=== PATIENT | female | born 1985 | race Caucasian/White ===

== ENCOUNTER 2020-04-10 16:31 | Inpatient (IN) | payer OTHER ==
--- NOTE | ~2020-04-10 | OR ---
[facility] [address], [place] [address] Draft DATE OF OPERATION: 04/10/2020 SURGEON: Juan Manuel Millan DO PIPE SMOKING MACHINE OFFBEARER: Dr. Kirk. PROCEDURE: Primary low-transverse caesarean section. PREOPERATIVE DIAGNOSES: 1. Non-reassuring heart tones, remote from delivery. 2. Presumed abruption. 3. 32 weeks gestation. 4. Cephalic presentation. POSTOPERATIVE DIAGNOSES: Placental abruption greater than 50%, status post primary , pre-term viable female . LINES: None. DRAINS: Farah catheter. ESTIMATED BLOOD LOSS: 1000 mL. FINDINGS: Pre-term viable female , nuchal x1, delivered in LOP position. Normal-appearing uterus, bilateral tubes, and bilateral ovaries. Placenta with greater than 50% abruption including very dark red blood clot between chorion and amnion. INDICATIONS: The patient presented to [facility] following sudden leakage of fluid at work. She reported significant amount of bleeding, presented to the doctor at [employer] where she works, who sent her by ambulance FB for further evaluation. Upon arrival, she was noted to have late decelerations down to 83, was kiley on the monitor and had a significant amount of active bright red bleeding from her vagina perineum, inner thighs, PATIENT NAME: RUSS MATOS OPERATIVE REPORT DATE OF : 89 REPORT #: [id number] PHYSICIAN: JUAN MANUEL MILLAN DO PCP: NO PRIMARY CARE PHYSICIAN REPORT IS CONFIDENTIAL AND NOT TO BE RELEASED WITHOUT AUTHORIZATION [facility] [address], [place] [address] Draft saturated maxi pad. She was emergently consented for code 4 caesarean delivery. Under general anesthesia, was planned to transfer baby to higher level of care after delivery due to early gestational age. Verbal consent was obtained. DESCRIPTION OF PROCEDURE: The patient was taken to the operating room where Farah catheter was placed. IVCs were placed bilaterally. She was positioned in the supine position with leftward tilt. Abdomen was prepped and draped in the normal sterile fashion. incision was made with the scalpel and carried down to the underlying layer of fascia, which was extended laterally with Orr scissors. Inferior margin was grasped with Radha clamps, elevated, and underlying rectus muscle dissected off bluntly and sharply with Orr scissors. In a similar manner, the superior margin of fascia was grasped with Radha, elevated, and underlying rectus muscle dissected off bluntly and sharply with Orr scissors. Peritoneum was entered bluntly and extended with lateral traction. Incision was made in the lower uterine segment. Hysterotomy was extended laterally with superior and inferior gentle traction. Amniotic fluid was noted to be very bloody with large dark red blood clots exceeding 100 mL present in the food. Baby was easily delivered and immediately cord was doubly clamped and cut. Baby was handed to waiting Nursery team. A segment of cord was obtained for cord gases and the placenta was manually extracted and inspected, noted to have greater than 50% placental abruption. Uterus was cleared off clots and debris. Hysterotomy was closed with 0 Monocryl first in a running locked fashion and then in a second-layered in an imbricating fashion. Area of persistent oozing near the right apex was sutured in a lnynfj-vz-zfxzk fashion with 0 Monocryl with resulting hemostasis. Pelvis was suction irrigated and excellent hemostasis was noted at the hysterotomy. ACell sheet was applied over the hysterotomy. Peritoneum was closed with 2-0 Vicryl in a running fashion. Rectus muscles were reapproximated with 0 Vicryl in a simple interrupted fashion. Superficial oozing vessels were cauterized with Bovie cautery and ACell powder was applied over rectus muscles. Fascia was closed in a running fashion with 0 Vicryl. Subcutaneous tissue was reapproximated with 3-0 Vicryl in a simple interrupted fashion and subcuticular closure was performed with 4-0 Monocryl in a running fashion. Uterus was crede'd with minimum bleeding and fundus was noted to be firm. Abdominal x-rays were performed due to the emergent nature of the surgery, which prevented a full instrument and sponge count prior to surgery. No laps or instruments were noted on x-ray and all subsequent counts were complete. The patient remained in the OR initially after procedure for completion of a tap block per anesthesia with plans to recover in the LDRP room with telemetry. Juan Manuel Millan DO PATIENT NAME: RUSS MATOS OPERATIVE REPORT DATE OF : [birth year] REPORT #: [id number] PHYSICIAN: JUAN MANUEL MILLAN DO PCP: NO PRIMARY CARE PHYSICIAN REPORT IS CONFIDENTIAL AND NOT TO BE RELEASED WITHOUT AUTHORIZATION [address] [address] Draft [facility] /[id number] Copies: ~ PATIENT NAME: SHAWNARUSS OPERATIVE REPORT DATE OF : [birth year] REPORT #: [id number] PHYSICIAN: JUAN MANUEL MILLAN DO PCP: NO PRIMARY CARE PHYSICIAN REPORT IS CONFIDENTIAL AND NOT TO BE RELEASED WITHOUT AUTHORIZATION
--- NOTE | 2020-04-11 15:36 | PR ---
[facility] [address] [place], [place] [address] Signed PP Progress Notes Datetime Report Generated by RICK: 04/11/2020 15:36 SUBJECTIVE: [id number] Pain: Within Normal Limits Nausea/Vomiting: Denies Flatus: Yes Bowel Movement: No Vital Signs: [id number] Vital Signs: Reviewed Notable Details: CV: regular rate and rhythm, significant murmur consistent with aortic valve replacement Cardiovascular: Abnormal Respiratory: Normal Abdomen/Uterus: Normal Lochia: Normal Breasts: Normal Extremities: Normal Incision: Normal Progress: Normal Exam Comments: Incision c/d/i, margins intact IMPRESSION/PLAN/PROCEDURES: [id number] Impression: Normal Progression Plan: Continue Present Management; Discharge Progress Notes: POD#1 s/p PLTCS for placental abruption at 32 2/7 weeks gestation -progressing well -pumping with return of colostrum -baby transferred to [facility] NICU after delivery due to prematurity, patient strongly desires discharge NADEGE to be with baby -pain well-controlled with oral medications -s/p spontaneous void following singletary catheter removal -lochia light, incision healing well -reviewed strict ED/return precautions for infection, bleeding, preeclampsia -reviewed increased risk of depression. Discussed common signs/symptoms with pt and her sister, present at bedside. 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 Gómez, cleared for DC -asymptomatic, denies dyspnea/dizziness/lightheadedness *Electronically Signed* 04/11/20 1536 ZAWORSKI,JUAN MANUEL M DO PATIENT NAME: RUSS MATOS PROGRESS NOTE DATE OF : 89 PHYSICIAN: JUAN MANUEL MILLAN DO RPT #: [id number] REPORT IS CONFIDENTIAL AND NOT TO BE RELEASED WITHOUT AUTHORIZATION [facility] [address] [place], [place] [address] Signed -s/p Magnesium replacement this am, plan for Milk of Magnesia for bowel care -follow-up with door worker as scheduled, strict ED return precautions if difficulty breathing/chest pain or pressure/palpitations Plan: DC to home with precautions as noted above Signing Physician: Juan Manuel Millan DO Copies: ~ *Electronically Signed* 04/11/20 1536 JUAN MANUEL MILLAN DO PATIENT NAME: RUSS MATOS PROGRESS NOTE DATE OF : [birth year] PHYSICIAN: JUAN MANUEL MILLAN DO RPT #: [id number] REPORT IS CONFIDENTIAL AND NOT TO BE RELEASED WITHOUT AUTHORIZATION
== END 2020-04-11 17:00 | disposition home or self-care (01) | DRG 786 ==
LOC: FBCO 16:31 → FBC 16:44
PROVIDERS: ADMIT Obstetrics & Gynecology; ATTEND Obstetrics & Gynecology
PROC: 3E0T3BZ Introduction of Anesthetic Agent into Peripheral Nerves and Plexi, Percutaneous Approach (ICD-10-PCS; 2020-04-10)
PROC: 3E0T33Z Introduction of Anti-inflammatory into Peripheral Nerves and Plexi, Percutaneous Approach (ICD-10-PCS; 2020-04-10)
PROC: 10D00Z1 Extraction of Products of Conception, Low, Open Approach (ICD-10-PCS; principal; 2020-04-10 16:48)
DX: O45.93 Premature separation of placenta, unspecified, third trimester (principal); O60.13X0 Preterm labor second trimester with preterm delivery third trimester, not applicable or unspecified; Q87.2 Congenital malformation syndromes predominantly involving limbs; O99.355 Diseases of the nervous system complicating the puerperium; Z3A.32 32 weeks gestation of pregnancy; Z20.822 Contact with and (suspected) exposure to COVID-19; O76 Abnormality in fetal heart rate and rhythm complicating labor and delivery; Z37.0 Single live birth; O42.913 Preterm premature rupture of membranes, unspecified as to length of time between rupture and onset of labor, third trimester; O99.892 Other specified diseases and conditions complicating childbirth; G89.18 Other acute postprocedural pain; O69.1XX0 Labor and delivery complicated by cord around neck, with compression, not applicable or unspecified; O28.2 Abnormal cytological finding on antenatal screening of mother; O34.43 Maternal care for other abnormalities of cervix, third trimester; Z91.040 Latex allergy status; Z87.74 Personal history of (corrected) congenital malformations of heart and circulatory system; Z79.82 Long term (current) use of aspirin
CPT/HCPCS: 01961; 36415; 64448; 74018; 76942; 80053; 82803; 83735; 85027; C9803; J0131; J0330; J0690; J1100; J1170; J1200; J1650; J1885; J2405; J2590; J2704; J3010; J3475; J7121; U0003

== ENCOUNTER 2021-06-29 08:03 | Day surgery (SDC) | payer OTHER ==
[~2021-06-29] VITALS: Ht 170.2 cm; Wt 77.3 kg
--- NOTE | 2021-06-29 11:11 | NUR ---
06/29/21 1111 Sheets,Natalia 1057 PT ARRIVED TO PACU ON 10L VIA MASK AND ORAL AIRWAY IN PLACE. RESP EVEN AND UNLABORED. 1106 PT WAKES AND FOLLOWS COMMANDS TO OPEN MOUTH AND ORAL AIRWAY REMOVED. PT DENIES PAIN AND NAUSEA. PT REPORTS BEING COLD. WARM BLACKETS GIVEN. 1110 O2 REMOVED. PT REPORTS BEING WARM AND EASILY FALLS BACK TO SLEEP.
--- NOTE | 2021-06-29 11:59 | NUR ---
1150: PATIENT BACK IN DAY SURGERY ROOM FROM PACU. DROWSY. SLEEPING. AWAKENS EASILY TO VOICE. DENIES PAIN. VS CHECKED. NO PERIPAD IN PLACE. NO DRAINAGE FROM VAGINA SEEN. IV SITE WNL. SCDs ON. CALL LIGHT WITHIN REACH. FAMILY MEMBERS AT BEDSIDE. ICE WATER PLACED AT BEDSIDE.
[2021-06-29] MEDS ORDERED: IBUPROFEN800 MG PO (12:15)
--- NOTE | 2021-06-29 13:28 | NUR ---
1225: PATIENT ASSISTED OOB AND TO BATHROOM. GAIT STEADY. VOID WITHOUT DIFFICULTY. GAIT STEADY BACK TO ROOM. PATIENT GETTING DRESSED. 1235: IV DC'D WNL. TIP INTACT. DRESSING APPLIED. VS CHECKED. DISCHARGE INSTRUCTIONS GIVEN TO PATIENT. 1240: PATIENT DISCHARGED TO HOME VIA WHEELCHAIR WITH SISTER.
--- NOTE | 2021-07-06 09:52 | OR ---
[facility] [address] [place], [place] [address] Signed DATE OF OPERATION: 06/29/2021 SURGEON: Bobby Montero MD PREOPERATIVE DIAGNOSES: Abnormal uterine bleeding with small endometrial mass and CIN3. POSTOPERATIVE DIAGNOSES: Abnormal uterine bleeding and CIN3. PROCEDURE: Hysteroscopy with biopsy and loop electrical excision procedure (LEEP). ANESTHESIA: General. ESTIMATED BLOOD LOSS: 10 mL. COMPLICATIONS: None. DRAINS: None. FINDINGS: Cervix, normal size and shape. No obvious lesions. No acetowhite lesions seen. There was a small nonstaining Lugol's area at 10 o'clock on the cervix just at the squamocolumnar junction. Vagina had no lesions. Uterus showed normal endometrium. No masses or lesions. Both ostia appeared normal. The fundus showed slight bulging into the cavity, but no polyps or fibroids noted. DESCRIPTION OF PROCEDURE: The patient was brought to the operating room, placed in supine position. After adequate general anesthesia was obtained, was placed in a dorsal lithotomy position, prepped and draped in usual sterile fashion. A coated speculum was placed in the vagina. The cervix was identified and covered with acetic acid and no obvious acetowhite lesions were seen. The cervix was then carefully painted with Lugol's and there was a very small nonstaining area at approximately 10 o'clock. The cervix was then injected with a 5.5 mL of 1% lidocaine with epinephrine in a circumferential pattern in Electronically Signed By: BOBBY MONTERO MD 07/06/21 0952 PATIENT NAME: RUSS MATOS OPERATIVE REPORT DATE OF : 89 REPORT #: [id number] PHYSICIAN: BOBBY MONTERO MD PCP: NO PRIMARY CARE PHYSICIAN REPORT IS CONFIDENTIAL AND NOT TO BE RELEASED WITHOUT AUTHORIZATION [facility] [address] [place], [place] [address] Signed the stroma. 20 x 10 mm loop was used in the LEEP machine to cut the outer part of the cervix, making sure to incorporate the nonstaining area. A 10 x 10 mm loop was then used to remove a portion of the endocervix and Kevorkian curette was then used to scrape the remaining portion of the endocervix in a 360-degree fashion. These curettings and the cervix were all collected separately. A ball electrode was then used to cauterize the area of dissection and good hemostasis was noted. The cervix was slightly dilated with one dilator and then the hysteroscope set up. The hysteroscope was placed in the endocervical canal and the hysteroscope then entered the uterine cavity under direct visualization. Sterile saline was used as distending medium. The above findings were noted. The MyoSure Lite was placed through the hysteroscope and the endometrium sampled. The upper midline portion was taken down and good sampling of the anterior, posterior, and lateral edges were taken as well as the lower uterine segment using the MyoSure Lite. Good hemostasis was noted here. The hysteroscope was then removed. The cervix observed and noted to have good hemostasis. Monsel's was then placed in the cervical biopsy site, to further help with hemostasis. All instruments were removed from vagina. The patient tolerated the procedure well, went to recovery room in good condition. The sponge and instrument count correct in the procedure. The fluid deficit was noted to be 490 ml, but about half of this was noted to be lost in the drapes and onto the floor. The pressure wa set at 80 mm Hg. The endometrial biopsy, the cervix biopsy, the endocervix biopsy, and ECC were all separately sent to Pathology for identification. Bobby Montero MD [facility] /[id number] Copies: ~ Electronically Signed By: BOBBY MONTERO MD 07/06/21 0952 PATIENT NAME: RUSS MATOS OPERATIVE REPORT DATE OF : 89 REPORT #: [id number] PHYSICIAN: BOBBY MONTERO MD PCP: NO PRIMARY CARE PHYSICIAN REPORT IS CONFIDENTIAL AND NOT TO BE RELEASED WITHOUT AUTHORIZATION
--- NOTE | 2021-07-06 18:23 | PATH ---
[facility] [address] [place], [place] [address] Signed SPECIMEN(S): A CERVIX SPECIMEN(S): B ENDOCERVIX SPECIMEN(S): C ENDOCERVICAL CURETTINGS SPECIMEN(S): D ENDOMETRIAL BIOPSY SPECIMEN SOURCE: A. CERVIX B. ENDOCERVIX C. ENDOCERVICAL CURETTINGS D. ENDOMETRIAL BIOPSY CLINICAL HISTORY: Pre: G3, P2, A1; abnormal uterine bleeding; CIN3 cervix. Post: LEEP procedure, hysteroscopy FINAL PATHOLOGIC DIAGNOSIS: A. Cervix, LEEP: - Cervical and endocervical mucosa with focal acute inflammation and reactive changes. B. Endocervix, excision: - Endocervical mucosa with squamous metaplasia and reactive changes. C. Endocervix, curettage: - Fragments of endocervical mucosa and detached endocervical glands with no histopathologic abnormality. - Fragments of superficial squamous epithelium with no histopathologic abnormality. D. Endometrium, biopsy: - Late proliferative/early secretory phase endometrium. - Polypoid fragments with features of benign endometrial polyp(s). - Chronic endometritis. - Focal small hyalinized nodules, see Comment. - Fragments of endocervical mucosa with no histopathologic abnormality. - Negative for atypical hyperplasia or malignancy. COMMENT: The patient's most recent cervical cytology from 09/04/2020 ([id number]) and most recent cervical biopsy from 10/27/2020 ([id number]), was reviewed. No residual dysplasia is identified in the cervical or endocervical specimens. Regarding specimen D: Focal small hyalinized nodules are seen, however no trophoblasts are identified. These could represent degenerative changes. PATIENT NAME: RUSS MATOS PATHOLOGY DATE OF : 89 REPORT #: [id number] PHYSICIAN: CHARLES PATHOLOGY PCP: NO PRIMARY CARE PHYSICIAN REPORT IS CONFIDENTIAL AND NOT TO BE RELEASED WITHOUT AUTHORIZATION [facility] [address] [place], [place] [address] Signed NAL:cml:C2NR MICROSCOPIC EXAMINATION: Histologic sections of all submitted blocks are examined by light microscopy. These findings, together with the gross examination, support the pathologic diagnosis. A p16 immunohistochemical stain (with appropriately staining controls) was performed and a public utilities sales representative section of the cervical LEEP specimen and is negative for strong, block-like epithelial positivity, supporting the diagnosis. GROSS DESCRIPTION: Four specimens are received in four containers, labeled "NM." A. The specimen, labeled "NM, A," and designated on the requisition as "cervix", is received in formalin and consists of an unoriented portion of cervix (3.5 x 1.4 x 0.8 cm) with pink-garcia cervical mucosa. The resection margin is inked blue and the specimen is serially sectioned to reveal a pink-garcia cut surface. The specimen is submitted entirely in cassette A1-A2. B. The specimen, labeled "NM, B," and designated on the requisition as "endocervix", and is received in formalin and consists of a portion of unoriented pink-garcia cervix (2.1 x 1.1 x 0.9 cm) with scant cervical mucosa identified. The specimen is inked blue and serially sectioned. The specimen is submitted entirely in cassette B1-B2. C. The specimen, labeled "NB, C," and designated on the requisition as "ECC", is received in formalin and consists of the portion of red-brown soft tissue (2.0 x 0.8 x 0.2 cm aggregate). The specimen is submitted entirely in cassette C1. D. The specimen, labeled "NB, D," and designated on the requisition as "endometrial biopsy", is received in formalin and consists of two fragments of pink-garcia soft tissue (5.3 x 1.5 x 0.4 cm in aggregate). The specimen is submitted entirely in cassette D1-D2. AC (under the direct supervision of a pathologist) The Gross Description was prepared using a voice recognition system. The report was reviewed for accuracy; however, sound-alike word errors, addition and/or deletions may occur. If there is any question about this report, please contact Client Services. ADDITIONAL NOTES: Immunohistochemical and/or in situ hybridization studies were performed on this case with the appropriate positive controls that react as expected. This test PATIENT NAME: RUSS MATOS PATHOLOGY DATE OF : [birth year] REPORT #: [id number] PHYSICIAN: CHARLES PATHOLOGY PCP: NO PRIMARY CARE PHYSICIAN REPORT IS CONFIDENTIAL AND NOT TO BE RELEASED WITHOUT AUTHORIZATION [address] [address] Signed was developed and its performance characteristics determined by [facility]. It has not been cleared or approved by the U.S. Food and Drug Administration. The FDA has determined that such clearance or approval is not necessary. This test is used for clinical purposes. It should not be regarded as investigational or for research. [facility] is certified under the Clinical Laboratory Improvement Amendments of 1988 (CLIA) as qualified to perform high complexity clinical laboratory testing. This assay has not been validated for specimens that have been decalcified. The technical component was performed by [facility], [address] [place] [address] (Sharepoint Trainer: Brielle Gramajo MD; CLIA# [id number]). Professional interpretation [facility] by [facility], [address] [place] [id number] (CLIA# [id number]). PERFORMING LABORATORY: The technical component was performed by [facility], [address] [place] [address] (Sharepoint Trainer: Brielle Gramajo MD; CLIA# [id number]).Professional interpretation was performed by [facility], [address] [place] [address], [place] [address] (CLIA# [id number]). Diagnostician: Ernestina Martinez MD Pathologist Electronically Signed 07/06/2021 Copies: ~ PATIENT NAME: RUSS MATOS PATHOLOGY DATE OF : 89 REPORT #: [id number] PHYSICIAN: CHARLES VASQUEZ PCP: NO PRIMARY CARE PHYSICIAN REPORT IS CONFIDENTIAL AND NOT TO BE RELEASED WITHOUT AUTHORIZATION
== END 2021-06-29 12:40 | disposition home or self-care (01) ==
LOC: DS 08:03 → OPS 08:03 → DS 10:00 → OPS 12:40
PROVIDERS: ATTEND General Practice
PROC: 0UDB8ZX Extraction of Endometrium, Via Natural or Artificial Opening Endoscopic, Diagnostic (ICD-10-PCS; principal; 2021-06-29 10:00)
PROC: 0UBC7ZZ Excision of Cervix, Via Natural or Artificial Opening (ICD-10-PCS; 2021-06-29 10:00)
DX: D06.0 Carcinoma in situ of endocervix (principal); N93.9 Abnormal uterine and vaginal bleeding, unspecified; N72 Inflammatory disease of cervix uteri; N84.0 Polyp of corpus uteri; N71.1 Chronic inflammatory disease of uterus; D26.1 Other benign neoplasm of corpus uteri; J45.909 Unspecified asthma, uncomplicated; Z91.040 Latex allergy status; Z91.048 Other nonmedicinal substance allergy status
CPT/HCPCS: 00940; J0461; J1100; J1885; J2250; J2405; J2704; J2765; J3010; J7121